=== PATIENT | female | born 1985 | race Caucasian/White ===

== ENCOUNTER → 2017-12-15 11:35 | Outpatient (CLI) | payer OTHER, SELFPAY ==
[2017-12-15 13:59] LABS: Chlamydia Trachomatis by PCR Negative (Negative); Neisserai gonorrhoeae by PCR Negative (Negative); Probe Check PASS; Sample Adequacy Control PASS; Specimen Processing Control PASS
[2017-12-15 14:37] LABS: HIV - WCH Non-Reactive (Nonreactive)
[2017-12-16 14:07] LABS: HEPATITIS B SURFACE AG Negative (Negative); Hepatitis B Core AB IgM Negative (Negative); Hepatitis B Core Ab Total Negative (Negative); Hepatitis Be Ab Negative (Negative); Hepatitis Be Ag Negative (Negative); Hepatitis C Ab <0.1 s/co ratio (0.0-0.9)
[2017-12-17 01:13] LABS: Rapid Plasmin Reagin (RPR) NONREACTIVE (NONREACTIVE)
[2017-12-17 11:56] LABS: HSV 1 IgG 4.09 index (0.00-0.90); HSV 2 IgG < 0.91 index (0.00-0.90); Hep B Surface Antibodies Reactive (.)
[2017-12-17 12:10] LABS: HPV Reflexed? NOT INDICATED
== END ==
PROVIDERS: Visit Provider Obstetrics & Gynecology
DX: Z11.3 Encounter for screening for infections with a predominantly sexual mode of transmission (principal); Z12.4 Encounter for screening for malignant neoplasm of cervix
CPT/HCPCS: 36415; 86592; 86695; 86696; 86703; 86704; 86705; 86706; 86707; 86803; 87340; 87350; 87491; 87591; 88175; G0145

== ENCOUNTER → 2019-12-05 11:30 | Outpatient (CLI) | payer OTHER, SELFPAY ==
[2013-07-22 16:31] VITALS: BMI 27.6
[2019-12-05 17:49] LABS: Chlamydia Trachomatis by PCR Negative (Negative); Neisserai gonorrhoeae by PCR Negative (Negative); Probe Check PASS; Sample Adequacy Control PASS; Specimen Processing Control PASS
== END ==
PROVIDERS: Referring Provider Obstetrics & Gynecology; Visit Provider Obstetrics & Gynecology
DX: Z11.3 Encounter for screening for infections with a predominantly sexual mode of transmission (principal); Z34.81 Encounter for supervision of other normal pregnancy, first trimester
CPT/HCPCS: 87491; 87591

== ENCOUNTER → 2019-12-12 17:26 | Outpatient (CLI) | payer OTHER, SELFPAY ==
[2013-07-22 16:31] VITALS: BMI 27.6
[2019-12-12 17:50] LABS: Absolute Lymphocyte Count 2.34 X10^3/uL (0.83-4.51); Basophil# 0.03 X10^3/uL; Basophil% 0.3 % (0-1); Eosinophil# 0.06 X10^3/uL; Eosinophils% 0.6 % (0-5); Hematocrit 41.5 % (37-47); Hemoglobin 13.5 g/dL (12.0-15.0); Lymphocyte # 2.34 X10^3/ul (4.0); Lymphocyte % 23.5 % (19-41); Mean Corp Hgb Conc 32.5 g/dL (32-36); Mean Corpuscular Hgb 28.5 pg (27.0-32.0); Mean Corpuscular Volume 87.7 fL (81-99); Mean Platelet Vol. 10.6 fl (6.2-12.0); Monocyte# 0.55 X10^3/uL; Monocyte% 5.5 % (0-10); NRBC Flagged by Analyzer 0 % (0-5); Neutrophil # 6.97 X10^3/uL (2.7-7.7); Neutrophil % 69.9 % (47-70); Platelet Count 329 K/mm3 (150-450); RBC Distribution Width CV 12.3 % (11.6-14.6); RBC Distribution Width SD 39.4 fl (35.1-43.9); Red Blood Count 4.73 M/mm3 (4.2-5.4)
[2019-12-12 18:06] LABS: Amphetamine Urine VISTA POSITIVE (<1000 ng/mL); Barbiturate Urine VISTA NEGATIVE (< 200 ng/mL); Benzodiazepine Urine VISTA NEGATIVE (< 200 ng/mL); Cocaine Urine VISTA NEGATIVE (< 300 ng/mL); Ecstacy Urine VISTA NEGATIVE (< 500 ng/mL); Methadone Urine VISTA NEGATIVE (< 300 ng/mL); PCP Urine VISTA NEGATIVE (< 25 ng/mL); THC Urine VISTA NEGATIVE (< 50 ng/mL); Vista UDS pH Range 6
[2019-12-12 18:08] LABS: Color, Urine Yellow (Yellow); Glucose, Dipstick Normal (Normal); Ketone-Dipstick Negative (Negative); Leukocyte Esterase-Dipstick 500 /ul (Negative); Nitrite-Dipstick Negative (Negative); Occult Blood-Urine Negative /ul (Negative); Protein-Dipstick Negative (Negative); Urine Bilirubin Dipstick Negative (Negative); Urine Clarity Clear (Clear); Urine Urobilinogen Normal (Normal); Urine pH 6.5 (5.0 - 8.0)
[2019-12-12 18:16] LABS: Thyroid Stim Hormone (TSH) 1.44 uIU/mL (0.358-3.74)
[2019-12-12 18:19] LABS: COTININE Drug Screen Negative (<200 ng/mL)
[2019-12-13 08:35] LABS: HIV - WCH Non-Reactive (Nonreactive); Hepatitis B Surface Antigen Non-Reactive (Nonreactive); Hepatitis C Antibody Non-Reactive (Nonreactive); Rubella IgG 37.4 IU/mL
[2019-12-14 08:07] LABS: Prenatal RPR NONREACTIVE (NONREACTIVE)
== END ==
PROVIDERS: Referring Provider Obstetrics & Gynecology; Visit Provider Obstetrics & Gynecology
DX: Z34.81 Encounter for supervision of other normal pregnancy, first trimester (principal)
CPT/HCPCS: 80307; 81002; 84443; 85025; 86703; 86762; 86803; 87340

== ENCOUNTER → 2020-04-09 09:39 | Outpatient (CLI) | payer OTHER, SELFPAY ==
[2020-04-09 11:55] LABS: Hematocrit 39.5 % (37-47); Hemoglobin 12.8 g/dL (12.0-15.0); Mean Corp Hgb Conc 32.4 g/dL (32-36); Mean Corpuscular Hgb 29.6 pg (27.0-32.0); Mean Corpuscular Volume 91.2 fL (81-99); Mean Platelet Vol. 10.9 fl (6.2-12.0); Platelet Count 277 K/mm3 (150-450); RBC Distribution Width CV 12.3 % (11.6-14.6); RBC Distribution Width SD 41.1 fl (35.1-43.9); Red Blood Count 4.33 M/mm3 (4.2-5.4)
[2020-04-09 12:01] LABS: Glucose Challenge Gest 1H 50g 154 mg/dL (70-140)
== END ==
PROVIDERS: Visit Provider Obstetrics & Gynecology
DX: Z34.83 Encounter for supervision of other normal pregnancy, third trimester (principal)
CPT/HCPCS: 36415; 82950; 85027

== ENCOUNTER → 2020-04-18 09:52 | Outpatient (CLI) | payer OTHER, SELFPAY ==
[2020-04-18 10:51] LABS: Glucose GTT-Gestation. Fasting 79 mg/dL (<105)
[2020-04-18 11:54] LABS: Glucose GTT-Gestational 1 Hr 153 mg/dL (<190)
[2020-04-18 13:18] LABS: Glucose GTT-Gestational 2 Hr 147 mg/dL (<165)
[2020-04-18 14:46] LABS: Glucose GTT-Gestational 3 Hr 107 L (<145)
== END ==
LOC: LAB 09:55
PROVIDERS: PCP Family Medicine; Referring Provider Obstetrics & Gynecology; Visit Provider Obstetrics & Gynecology
DX: O24.912 Unspecified diabetes mellitus in pregnancy, second trimester (principal); Z3A.00 Weeks of gestation of pregnancy not specified
CPT/HCPCS: 36415; 82951; 82952

== ENCOUNTER → 2020-06-04 13:19 | Outpatient (CLI) | payer OTHER, SELFPAY ==
[2013-07-22 16:31] VITALS: BMI 27.6
== END ==
PROVIDERS: PCP Family Medicine; Visit Provider Student in an Organized Health Care Education/Training Program
DX: Z36.85 Encounter for antenatal screening for Streptococcus B (principal)
CPT/HCPCS: 87081

== ENCOUNTER 2020-06-09 18:00 | Outpatient (CLI) | payer OTHER, SELFPAY ==
[2013-07-22 16:31] VITALS: BMI 27.6
[2020-06-09 18:14] VITALS: BP 130/78; PULSE 74; TEMP 36.8; O2SAT 98
[2020-06-09 18:25] VITALS: BMI 31.4
[2020-06-09 19:10] LABS: Bacteria 0 SEEN /hpf (None Seen); Mucous, Urine 0 SEEN /hpf (<or=2+); Red Blood Cells-Urine 0 SEEN /hpf (0-5)
[2020-06-09 19:13] LABS: Color, Urine Yellow (Yellow); Glucose, Dipstick Normal (Normal); Ketone-Dipstick 5 mg/dl (Negative); Leukocyte Esterase-Dipstick 100 /ul (Negative); Nitrite-Dipstick Negative (Negative); Occult Blood-Urine Negative /ul (Negative); Protein-Dipstick 15 mg/dl (Negative); Specific Gravity, Urine 1.015 (1.002-1.030); Urine Bilirubin Dipstick Negative (Negative); Urine Clarity Clear (Clear); Urine Urobilinogen Normal (Normal); Urine pH 6.5 (5.0 - 8.0)
[2020-06-09 19:19] LABS: Squamous Epithelial Cells - UA 5-10 SEEN /hpf (5-10); White Blood Cells 0-5 SEEN /hpf (0-5)
[2020-06-09 19:28] VITALS: BP 123/85; PULSE 76
[2020-06-09 19:29] VITALS: PULSE 75; TEMP 37.3; O2SAT 97
[2020-06-09 22:33] VITALS: BP 129/89; PULSE 91
--- NOTE | 2020-06-13 12:55 | OB.TRI.HP_ITS ---
- Problem List (1) 37 weeks gestation of Status: Acute History of Present Illness Date of Service: 06/09/20 Was patient seen by the physician?: No Reason For Visit: CRAMPING/ABDOMINAL PAIN Final JESSICA: 06/30/20 Gestational age: 37 Weeks and 0 Days History of Present Illness: 35yo @ 37wga with c/o lower abdominal pain and contractions. Allergies amoxicillin [Amoxicillin] Allergy (Verified 06/09/20 18:21) Rash Laboratory Studies: Laboratory Tests 06/09/20 Range/Units 18:40 Urine Color Yellow (Yellow) Urine Clarity Clear (Clear) Urine pH 6.5 (5.0 - 8.0) Ur Specific [place] 1.015 (1.002-1.030) Urine Protein 15 H (Negative) mg/dl Urine Glucose (UA) Normal (Normal) mg/dl Urine Ketones 5 H (Negative) mg/dl Urine Occult Blood Negative (Negative) /ul Urine Nitrite Negative (Negative) Urine Bilirubin Negative (Negative) mg/dL Urine Urobilinogen Normal (Normal) mg/dl Ur Leukocyte Esterase 100 H (Negative) /ul Urine RBC 0 SEEN (0-5) /hpf Urine WBC 0-5 SEEN (0-5) /hpf Ur Squamous Epith Cells 5-10 SEEN (5-10) /hpf Urine Bacteria 0 SEEN (None Seen) /hpf Urine Mucus 0 SEEN (<or=2+) /hpf Physical Exam Vitals: Vital Signs Temp Pulse BP Pulse Ox 99.1 F 91 129/89 H 97 06/09/20 19:29 06/09/20 22:33 06/09/20 22:33 06/09/20 19:29 NST - FHR Rate Baby A Baseline: 130 Variability:: Moderate Accelerations:: 15 x 15 Decelerations:: None NST Reactive:: Yes FHR Category:: Category I Uterine Activity:: 2-3/ Impression/Plan Cat I FHR False labor SVE unchanged over several hours d/c home
== END 2020-06-09 22:55 | disposition home or self-care (01) ==
LOC: WPOUT 18:13 → OBT 18:13
PROVIDERS: PCP Family Medicine; Visit Provider Obstetrics & Gynecology
DX: O47.1 False labor at or after 37 completed weeks of gestation (principal); Z3A.37 37 weeks gestation of pregnancy; Z88.0 Allergy status to penicillin
CPT/HCPCS: 59025; 59050; 81001; 87086; 87088; 99218; G0378

== ENCOUNTER 2020-06-21 00:08 | Inpatient (IN) | payer OTHER, SELFPAY ==
[2020-06-20 23:49] VITALS: BMI 31.7
[2020-06-21] VITALS (18 sets, daily range): BP systolic 106–132; BP diastolic 62–84; PULSE 55–82; RESP 14–18; TEMP 36.4–37.2; O2SAT 86–97
[2020-06-21] MEDS: Lactated Ringers 500 ML 999 ML IV (00:15)
[2020-06-21 00:41] LABS: Absolute Lymphocyte Count 2.92 X10^3/uL (0.83-4.51); Absolute Neutrophil Count 8.6 X10^3/uL (2.0-7.7); Basophil# 0.06 X10^3/uL; Basophil% 0.5 % (0-1); Eosinophil# 0.09 X10^3/uL; Eosinophils% 0.7 % (0-5); Hematocrit 39.4 % (37-47); Lymphocyte # 2.92 X10^3/ul (4.0); Lymphocyte % 23.1 % (19-41); Mean Corpuscular Hgb 29.7 pg (27.0-32.0); Monocyte# 0.94 X10^3/uL; Monocyte% 7.4 % (0-10); NRBC Flagged by Analyzer 0 % (0-5); Neutrophil # 8.56 X10^3/uL (2.7-7.7); Neutrophil % 67.7 % (47-70); Platelet Count 294 K/mm3 (150-450); RBC Distribution Width CV 12.2 % (11.6-14.6); RBC Distribution Width SD 40.1 fl (35.1-43.9); Red Blood Count 4.38 M/mm3 (4.2-5.4); White Blood Count 12.7 K/mm3 (4.4-11.0)
[2020-06-21] MEDS: Oxytocin 30 units/NS 500 ml 30 UNITS/500 ML IV.SOLN 334 UNITS IV (00:58)
--- NOTE | 2020-06-21 01:10 | HP.PCM_ITS ---
History and Physical Date of Admission: 06/21/20 Chief complaint: Contractions History of present illness: 35-year-old at 30 weeks and 5 days with JESSICA: 06/30/20 x 8-week ultrasound arrives with contractions. Patient denies headache visual changes, chest pain, shortness of breath, nausea vomiting, right upper quadrant pain. Patient states good movement. Obstetric history: G1: 39-week male 12/22/2017 G2: 38-week male 05/09/2013 G3: SAB G4: Current Past medical history: ADD Past surgical history: None Medications: Adderall, vitamin Allergies: Amoxicillin (rash) Social history: Former smoker, denies alcohol or drug use Family history: Denies history of DVT or PE Review of systems: Besides the above pertinent positives a full review of systems was performed and found to be negative Physical exam: Vital Signs Temp Pulse BP Pulse Ox 06/21/20 01:04 97.9 F 77 112/62 06/21/20 00:45 82 86 06/21/20 00:43 82 97 06/21/20 00:01 99.0 F 80 131/78 H General: Normal-appearing no acute distress HEENT: Normocephalic atraumatic no cervical lymphadenopathy Cardiac/respiratory: No on labored breathing, no use of accessory muscles Abdomen: Soft, nontender, gravid. Positive bowel sounds. Negative for rebound tenderness or guarding Pelvic exam: 10/100/+3 Extremities: No peripheral edema normal peripheral pulses Psych: Normal affect normal demeanor nonpressured speech Mom's Microbiology 06/21/20 00:32 Mucosa - Nose SARS-CoV-2 Antigen (Rapid) - Pending Mom's Labs & Results 06/21/20 06/21/20 00:15 00:15 WBC 12.7 H RBC 4.38 Hgb 13.0 Hct 39.4 MCV 90.0 MCH 29.7 MCHC 33.0 RDW Std Deviation 40.1 RDW Coeff of Frederic 12.2 Plt Count 294 MPV 11.0 Immature Gran % (Auto) 0.600 Neut % (Auto) 67.7 Lymph % (Auto) 23.1 [place] % (Auto) 7.4 Eos % (Auto) 0.7 Baso % (Auto) 0.5 Absolute Neuts (auto) 8.6 H Absolute Lymphs (auto) 2.92 Nucleated RBC % 0 Blood Type Pending Antibody Screen Pending O+, antibody negative, rubella immune, HIV negative, hep B surface antigen negative, hep C negative, RPR nonreactive Assessment and plan: 35-year-old at 30 weeks and 5 days arrives in active labor. -Delivery -GBS negative -Routine orders -Anesthesia to see
--- NOTE | 2020-06-21 01:16 | PCM.OPRPT ---
Vaginal Delivery Maternal Presentation: Active Labor Final JESSICA: 06/30/20 Final JESSICA Source: US <20 weeks Gestational age: 38 Weeks and 5 Days Date of Procedure: 06/21/20 Pre-Operative Diagnosis: Active labor Post-Operative Diagnosis: Active labor Surgery/ Procedure Performed: Spontaneous Vaginal Delivery Type of Anesthesia: None Description of Procedure: Normal spontaneous vaginal delivery of a viable male , KAYLA. Head and shoulders delivered with ease. Cord was cut and clamped. Baby was handed off to nursing. Placenta was delivered via cord traction and fundal massage. No lacerations were noted. EBL 200 cc Apgars 8/9
[2020-06-21] MEDS: Ibuprofen 600 MG Tablet PO (03:09)
[2020-06-22 05:32] VITALS: BP 117/75; PULSE 64; RESP 16; TEMP 36.9
--- NOTE | 2020-06-22 09:17 | PN.OBGYN_ITS ---
Subjective: Pain well controlled. No overnight complaints. Minimal lochia. - Physical Exam Vitals/I&O's: Vital Signs Temp Pulse Resp BP Pulse Ox 98.4 F 64 16 117/75 96 06/22/20 05:32 06/22/20 05:32 06/22/20 05:32 06/22/20 05:32 06/21/20 20:29 Oxygen Delivery Method Room Air Weight: 227 lb 6.4 oz Body Mass Index (BMI) 31.7 Intake and Output for Last 24 Hours 06/20/20 06/21/20 06/22/20 23:59 23:59 23:59 Intake Total 1000 / 1000 Output Total 250 / 250 Balance 750 / 750 General: Alert, Oriented x3, Cooperative, No apparent distress HEENT: Atraumatic, Normocephalic Oral: Moist Mucosa Neck: Supple Abdomen: Soft, Non Tender, - - Fundus firm and below umbilicus Extremities: No clubbing, No cyanosis Psych/Mental Status: Normal Affect, Appropriate, Alert and oriented to time, place, person, mood and affect Microbiology Past 72 Hours 06/21/20 00:32 Mucosa - Nose SARS-CoV-2 Antigen (Rapid) - Final Current Medications Acetaminophen (Acetaminophen 500 Mg Tablet) 1,000 mg PO Q8H PRN PRN PRN Reason: Pain Score 1-3 Al Hydroxide/Mg Hydroxide (Mag Hydrox/Al Hydrox/Simeth 30 Ml Udc) 15 - 30 ml PO Q4H PRN PRN PRN Reason: INDIGESTION Bisacodyl (Bisacodyl 10 Mg Suppository) 10 mg RECTAL UD PRN PRN Reason: If no BM Citric Acid/Sodium Citrate (Sodium Citrate/Citric Acid 30 Ml Udc) 30 ml PO X1 PRN PRN Reason: Section Dibucaine (Dibucaine 30 Gm Tube) 1 applic TOPICAL TID PRN PRN; Protocol PRN Reason: Discomfort Fentanyl Citrate (Fentanyl 100 Mcg/2 Ml Ampul) 25 - 50 mcg IV Q2H PRN PRN PRN Reason: Pain Score 4-10 Hydrocortisone (Hydrocortisone 2.5% Crm) 1 applic TOPICAL TID PRN PRN; Protocol PRN Reason: Discomfort Lactated Ringer's () 500 mls @ 999 mls/hr IV .Q31M PRN PRN Reason: Epidural Lactated Ringer's () 500 mls @ 999 mls/hr IV .Q31M PRN PRN Reason: Corrective Measures Last Infusion: 06/21/20 00:58 Dose: Infused Documented by: Ibuprofen (Ibuprofen 600 Mg Tablet) 600 mg PO Q6H PRN PRN PRN Reason: Pain Score 1-3 Last Admin: 06/21/20 03:09 Dose: 600 mg Documented by: Methylergonovine Maleate (Methylergonovine 0.2 Mg/Ml Ampul) 0.2 mg IM X1 PRN PRN Reason: Excess bleeding/uterine atony Ondansetron HCl (Ondansetron 4 Mg/2 Ml Vial) 4 mg IV Q4H PRN PRN PRN Reason: Nausea Prochlorperazine Edisylate (Prochlorperazine 10 Mg/2 Ml Vial) 10 mg IV Q6H PRN PRN PRN Reason: NAUSEA Senna/Docusate Sodium (Senna/Docusate Sodium 1 Tablet) 1 - 2 tablet PO DAILY PRN PRN PRN Reason: Constipation Simethicone (Simethicone 80 Mg Tablet) 80 mg PO PCHS PRN PRN Reason: Indigestion/Stomach pain Sodium Chloride (0.9% Saline Lock 10 Ml Syringe) 5 - 15 ml IV UD PRN PRN Reason: SALINE FLUSH Medical Necessity - Tobacco Use Smoking Status: Former smoker Assessment/Plan All Active Problems 37 weeks gestation of (Acute) day 1. Breast-feeding. Pain well controlled. 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
--- NOTE | 2020-06-22 09:19 | DCINST_ITS ---
Discharge Diet: No Restrictions Discharge Activity: Return to Normal Activity, May Drive, May Shower May resume sexual activity in: 2 weeks Weight Bearing Status: Weight bearing as tolerated Call your doctor if your incision/area has: Foul Smelling Discharge Call your doctor if you observe: Fever of 101 or Higher, Shortness of breath, Chest pain Additional Instructions: If you experience any of the following, contact your healthcare provider. * Bleeding that soaks a pad every hour for 2 hours * Fever 100.4 or higher * Unrelieved incision or abdominal pain * Swelling, redness, discharge or bleeding from your incision or episiotomy site * Your incision begins to separate * Problems urinating (including inability to urinate or burning while urinating). * Visual changes * Severe headache * Flu-like symptoms * Pain or redness in one of both of your breasts * Pain, warmth, tenderness or swelling in your legs, especially the calf area * Frequent nausea and vomiting * Symptoms of depression or anxiety If you experience any of the following, call 911 or go to the nearest Emergency Room. * Chest pain * Problems breathing * Seizure activity * Partial or complete paralysis of a body part, slurred speech, weakness or drooping of the face, or a sudden inability to walk or hold your balance Allergies/Adverse Reactions: Allergies amoxicillin [Amoxicillin] Allergy (Verified 06/20/20 23:50) Rash Medications to take at Discharge Vits [Prenatabs FA ] 1 tab PO DAILY 07/22/13 Please Follow Up With: Binta Vallejo MD When: 6 weeks Primary Care Physician: Mesha Duval DO [Primary Care Provider] - Test Results: Test results from this visit will be discussed in further detail at your follow- up appointment, if applicable.
--- NOTE | 2020-06-22 09:19 | PCM.DCVAG ---
Discharge Diet: No Restrictions Discharge Activity: Return to Normal Activity, May Drive, May Shower May resume sexual activity in: 2 weeks Weight Bearing Status: Weight bearing as tolerated Call your doctor if your incision/area has: Foul Smelling Discharge Call your doctor if you observe: Fever of 101 or Higher, Shortness of breath, Chest pain Additional Instructions: If you experience any of the following, contact your healthcare provider. Bleeding that soaks a pad every hour for 2 hours Fever 100.4 or higher Unrelieved incision or abdominal pain Swelling, redness, discharge or bleeding from your incision or episiotomy site Your incision begins to separate Problems urinating (including inability to urinate or burning while urinating). Visual changes Severe headache Flu-like symptoms Pain or redness in one of both of your breasts Pain, warmth, tenderness or swelling in your legs, especially the calf area Frequent nausea and vomiting Symptoms of depression or anxiety If you experience any of the following, call 911 or go to the nearest Emergency Room. Chest pain Problems breathing Seizure activity Partial or complete paralysis of a body part, slurred speech, weakness or drooping of the face, or a sudden inability to walk or hold your balance Allergies/Adverse Reactions: Allergies amoxicillin [Amoxicillin] Allergy (Verified 06/20/20 23:50) Rash Medications to take at Discharge Vits [Prenatabs FA ] 1 tab PO DAILY 07/22/13 Please Follow Up With: Binta Vallejo MD When: 6 weeks Primary Care Physician: Mesha Duval DO [Primary Care Provider] - Test Results: Test results from this visit will be discussed in further detail at your follow-up appointment, if applicable.
[2020-06-22 10:05] VITALS: BP 119/86; PULSE 85; RESP 18; TEMP 36.9; O2SAT 96
--- NOTE | 2020-06-22 11:59 | NURSING ---
Mother and father state that they are CPR certified and declined watching the CPR video
[2020-06-22 15:45] VITALS: BP 129/88; PULSE 84; RESP 16; TEMP 37.4; O2SAT 95
[2020-06-22 17:18] VITALS: RESP 18
--- NOTE | 2020-06-22 17:21 | NURSING ---
This RN agrees with Primitivo RN charting and patient care.
== END 2020-06-22 17:15 | disposition home or self-care (01) | DRG 807 ==
LOC: WP 01:01
PROVIDERS: Admitting Provider Obstetrics & Gynecology; PCP Family Medicine; Visit Provider Obstetrics & Gynecology
DX: O26.23 Pregnancy care for patient with recurrent pregnancy loss, third trimester (principal); Z37.0 Single live birth; Z3A.38 38 weeks gestation of pregnancy; Z87.891 Personal history of nicotine dependence
CPT/HCPCS: 59025; 59050; 85025; 86850; 86900; 86901; 87426; 99218; J7120; G0378

== ENCOUNTER → 2020-08-19 17:25 | Outpatient (CLI) | payer OTHER, SELFPAY ==
[2020-06-20 23:49] VITALS: BMI 31.7
[2020-08-22 03:07] LABS: Chlamydia By Nucleic Acid AMP Negative (Negative)
[2020-08-22 08:39] LABS: Gonococcus By Nucleic Acid AMP Negative (Negative)
== END ==
LOC: LABSPEC 17:27
PROVIDERS: PCP Family Medicine; Visit Provider Student in an Organized Health Care Education/Training Program
DX: Z30.430 Encounter for insertion of intrauterine contraceptive device (principal); Z11.3 Encounter for screening for infections with a predominantly sexual mode of transmission
CPT/HCPCS: 87491; 87591

== ENCOUNTER 2023-03-02 17:06 | Emergency (ER) | payer OTHER, SELFPAY ==
[2023-03-02 17:08] VITALS: BP 117/82; PULSE 72; RESP 18; TEMP 36.5; O2SAT 97; BMI 23.3
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
[2023-03-02 18:01] LABS: Absolute Lymphocyte Count 2.52 X10^3/uL (0.83-4.51); Absolute Neutrophil Count 6.5 X10^3/uL (2.0-7.7); Basophil# 0.05 X10^3/uL; Basophil% 0.5 % (0-1); Eosinophil# 0.11 X10^3/uL; Eosinophils% 1.1 % (0-5); Hematocrit 37.2 % (37-47); Hemoglobin 12.5 g/dL (12.0-15.0); Lymphocyte # 2.52 X10^3/ul (0.83-4.51); Lymphocyte % 25.4 % (19-41); Mean Corp Hgb Conc 33.6 g/dL (32-36); Mean Corpuscular Hgb 29.6 pg (27.0-32.0); Mean Corpuscular Volume 88.2 fL (81-99); Mean Platelet Vol. 9.7 fl (6.2-12.0); Monocyte# 0.72 X10^3/uL; Monocyte% 7.3 % (0-10); NRBC Flagged by Analyzer 0 % (0-5); Neutrophil # 6.48 X10^3/uL (2.7-7.7); Neutrophil % 65.4 % (47-70); Platelet Count 277 K/mm3 (150-450); RBC Distribution Width CV 12.8 % (11.6-14.6); RBC Distribution Width SD 40.9 fl (35.1-43.9); Red Blood Count 4.22 M/mm3 (4.2-5.4); White Blood Count 9.9 K/mm3 (4.4-11.0)
[2023-03-02 18:10] LABS: Anion Gap 5 (5-15); BUN 11 mg/dL (7-18); BUN/Creat Ratio 12.3 RATIO (10-20); Calcium,Total 9.1 mg/dL (8.5-10.1); Chloride 106 mmol/L (98-107); Creatinine, Serum 0.89 mg/dL (0.55-1.02); EST Glomerular Filtration Rate 76 mL/min (>60); Est Glom Filt Rate - Afr Amer 92 mL/min (>60); Estimated Creatinine Clearance 98.61 ml/min; Glucose 100 mg/dL (74-106); Potassium 3.4 mmol/L (3.5-5.1); Sodium Level 137 mmol/L (136-145)
[2023-03-02 18:40] LABS: Internal QC Validated? YES +Cl - CLEAR BKGD; Pregnancy, Serum, hCG Quali. NEGATIVE Negative
[2023-03-02 19:21] VITALS: BP 124/78; PULSE 65; RESP 16; O2SAT 98
== END 2023-03-02 20:23 | disposition home or self-care (01) ==
PROVIDERS: Emergency Provider Emergency Medicine; PCP Family Medicine; Visit Provider Emergency Medicine
DX: S19.9XXA Unspecified injury of neck, initial encounter (principal); Z87.891 Personal history of nicotine dependence; V49.40XA Driver injured in collision with unspecified motor vehicles in traffic accident, initial encounter; S29.9XXA Unspecified injury of thorax, initial encounter; Z98.82 Breast implant status; M79.12 Myalgia of auxiliary muscles, head and neck; R07.9 Chest pain, unspecified; S09.90XA Unspecified injury of head, initial encounter
CPT/HCPCS: 70450; 71260; 72125; 74177; 80048; 84703; 85025; 93005; 99285; Q9967; A4216

== ENCOUNTER → 2025-01-17 | Outpatient (CLI) | payer OTHER, SELFPAY ==
[2025-01-17 17:39] LABS: Follicle Stimulating Hormone 7.7 mIU/mL
[2025-01-19 04:07] LABS: PROGESTERONE 0.1 ng/mL (.)
[2025-01-20 14:08] LABS: HPV APTIMA, High Risk Negative (Negative)
== END | disposition home or self-care (01) ==
PROVIDERS: PCP Family Medicine; Referring Provider Nurse Practitioner Family; Visit Provider Nurse Practitioner Family
DX: Z12.4 Encounter for screening for malignant neoplasm of cervix (principal); R53.83 Other fatigue
CPT/HCPCS: 36415; 82670; 83001; 84144; 84403; 87624; 88175; G0145